=== PATIENT | female | born 1945 | race Caucasian/White ===

== ENCOUNTER 2018-01-06 19:26 | Emergency (ER) | payer OTHER ==
[~2018-01-06] VITALS: Ht 157.5 cm; Wt 71.2 kg
[~2018-01-06 19:26] MED LIST: CELEBREX50 MG; DICLOFENAC SODI25 MG
== END 2018-01-06 22:09 | disposition home or self-care (01) ==
LOC: ER 19:26
DX: L02.212 Cutaneous abscess of back [any part, except buttock and flank] (principal)

== ENCOUNTER 2022-01-25 09:43 | Outpatient (CLI) | payer OTHER | END 2022-01-25 09:44 | disposition home or self-care (01) | LOC: RX STUDY 09:43 | PROVIDERS: ATTEND Internal Medicine Gastroenterology | DX: R13.10 Dysphagia, unspecified (principal) ==

== ENCOUNTER 2022-09-25 08:50 | Outpatient (CLI) | payer OTHER | END 2022-09-25 09:02 | disposition home or self-care (01) | LOC: TOM 08:50 | PROVIDERS: ATTEND Internal Medicine Gastroenterology | DX: K56.609 Unspecified intestinal obstruction, unspecified as to partial versus complete obstruction (principal); K63.5 Polyp of colon ==

== ENCOUNTER 2024-10-28 21:34 | Emergency (ER) | payer OTHER ==
[~2024-10-28] VITALS: Ht 154.9 cm; Wt 62.6 kg
[2024-10-28] MEDS ORDERED: ROSUVASTATIN CAL5 MG PO (21:53)
[2024-10-28] MEDS ORDERED: TRAMADOL HCL 50 MG TABLET PO ONE (22:15)
== END 2024-10-28 23:40 | disposition home or self-care (01) ==
LOC: ER 21:36
DX: S09.8XXA Other specified injuries of head, initial encounter (principal); W10.8XXA Fall (on) (from) other stairs and steps, initial encounter; Y93.89 Activity, other specified; Y92.89 Other specified places as the place of occurrence of the external cause; Y99.8 Other external cause status; Z16.23 Resistance to quinolones and fluoroquinolones